=== PATIENT | male | born 1960 | race Caucasian/White ===

== ENCOUNTER 2019-04-06 11:26 | Emergency (ER) | payer OTHER ==
[2019-04-06 12:14] LABS: #Basophils 0.1 thou/uL (0.0-0.2); #Eosinphils 0.3 thou/uL (0.0-0.7); #Monocytes 0.6 thou/uL (0.11-0.59); #Neutrophils 4.7 thou/uL (1.40-6.50); %Basophils 0.8 % (0.0-1.0); %Eosinophils 4.5 % (0.0-10.0); %Lymphocytes 25.6 % (21.0-51.0); %Neutrophils 61.1 % (42.0-75.0); Hemoglobin 14.2 g/dL (14.0-18.0); Mean Corpuscular HGB CONC 34.6 g/dL (32.0-36.0); Mean Corpuscular Hemoglobin 30.5 pg (27.0-31.0); Mean Corpuscular Volume 88.1 fL (78.0-98.0); Mean Platelet Volume 6.2 fL (7.4-10.4); Platelet Count 229 thou/uL (130-400); RBC Distribution Width 11.1 % (11.5-14.5); Red Blood Cell (RBC) Count 4.66 mill/uL (4.70-6.10); White Blood Cell (WBC) Count 7.6 thou/uL (4.8-10.8)
[2019-04-06] MEDS ORDERED: Fentanyl 100 MCG/2 ML VIAL ONE (12:22)
[2019-04-06 12:30] LABS: ALT (SGPT) 71 U/L (8-55); AST (SGOT) 45 U/L (5-34); Albumin 4.1 g/dL (3.5-5.0); Alkaline Phosphatase 92 U/L (40-150); Anion Gap 14 mmol/L (10-20); BUN (Urea Nitrogen) 15 mg/dL (8.4-25.7); Bilirubin, Total 0.6 mg/dL (0.2-1.2); Calc. Creatinine Clearance 0 mL/min (70-130); Calcium 9.4 mg/dL (7.8-10.44); Carbon Dioxide 23 mmol/L (22-29); Chloride 105 mmol/L (98-107); Estimated GFR-MDRD 77; Globulin 3.6 g/dL (2.4-3.5); Glucose 232 mg/dL (70-105); Potassium 4.4 mmol/L (3.5-5.1); Protein, Total 7.7 g/dL (6.0-8.3); Sodium 138 mmol/L (136-145)
--- NOTE | 2019-04-06 14:12 | CT ---
EXAM: CT ABDOMEN AND PELVIS HISTORY: Large hiatal hernia with abdominal pain. COMPARISON: None. Procedure: Multiple contiguous axial images were obtained and a CT of the abdomen and pelvis with IV contrast. C oronal reformats were performed. FINDINGS: Lower Chest: Lung bases are clear Vessels: Normal caliber aorta. Heart: Normal heart size. No significant pericardial fluid. Abdomen: Portal vein:Patent Gallbladder: No calcified gallstones. Normal caliber wall. Liver: 6 mm hypodensity in the right hepatic lobe, too small to characterize. Otherwise, appropriate enhancement of the liver. Pancreas: Mild atrophy. Spleen: within normal limits. Adrenals: Asymmetric prominence of the lateral limb of the left adrenal gland, measuring 2.1 x 0.8 cm . Kidneys: Symmetric enhancement. Bilaterally no obstructive uropathy. Peritoneum: No ascites or free air, no fluid collection. Bowel: Gastric mucosa, duodenum and multiple normal caliber small bowel loops are identified. No evid ence of small bowel obstruction. Minimal fecalization of the distal ileum and terminal ileum likely due to an incompetent ileocecal valve. Appendix is not appreciated. No inflammation of the cecal apex . Mesentery and Retroperitoneum: There are enlarged gastrohepatic lymph nodes. [employer] lymph nod e measures 0.9 x 0.6 cm. No mesenteric or periaortic lymphadenopathy. Abdominal Wall: There is a 5.8 cm ventral abdominal wall hernia containing mesenteric fat and multipl e loops of small bowel as well as a segment of the transverse colon. No evidence of associated bowel obstruction Pelvis: Reproductive Organs: Mild hypertrophy of the prostate gland Pelvis: within normal limits. Bladder: within normal limits. Bones: Multilevel vacuum disc phenomenon. IMPRESSION: 1. Large ventral abdominal wall hernia containing mesenteric fat, small bowel and colon. No associate d bowel obstruction. Given the size of the hernia, general surgical consultation is strongly recommended for surgical repair. 2. Nonspecific mild gastrohepatic lymphadenopathy as described above. 3. Enlarged lateral limb of the left adrenal gland, incompletely evaluated. Nonemergent adrenal mass protocol CT versus abdomen MRI
== END 2019-04-06 16:47 | disposition short-term general hospital (02) ==
LOC: MADERS 11:26
DX: K43.6 Other and unspecified ventral hernia with obstruction, without gangrene (principal); I10 Essential (primary) hypertension; Z79.899 Other long term (current) drug therapy
CPT/HCPCS: 36415; 74177; 80053; 83605; 85025; 96374; J3010